=== PATIENT | female | born 1960 | race Caucasian/White ===

== ENCOUNTER 2016-12-17 20:32 | Emergency (ER) | payer MEDICAID ==
[~2016-12-17 20:32] MED LIST: AMARYL1 MG PO; DOXEPIN HCL10 MG PO; ENALAPRIL MALEA10 MG PO; METFORMIN HCL850 MG PO; ZOC10 PO; ZOL100 PO
[2016-12-17 21:55] VITALS: BP 135/81
== END 2016-12-17 21:55 | disposition home or self-care (01) ==
LOC: ED 20:32
DX: S93.401A Sprain of unspecified ligament of right ankle, initial encounter (principal); X50.1XXA Overexertion from prolonged static or awkward postures, initial encounter; Y93.66 Activity, soccer; Y92.89 Other specified places as the place of occurrence of the external cause; Y99.8 Other external cause status; Z79.84 Long term (current) use of oral hypoglycemic drugs; I10 Essential (primary) hypertension; E11.9 Type 2 diabetes mellitus without complications; F99 Mental disorder, not otherwise specified
CPT/HCPCS: J1885

== ENCOUNTER 2016-12-21 15:14 | Emergency (ER) | payer MEDICAID ==
[2016-12-21 17:40] VITALS: BP 152/84
== END 2016-12-21 17:40 | disposition home or self-care (01) ==
LOC: ED 15:14
DX: S93.401D Sprain of unspecified ligament of right ankle, subsequent encounter (principal); I10 Essential (primary) hypertension; E11.9 Type 2 diabetes mellitus without complications

== ENCOUNTER 2018-07-03 20:19 | Emergency (ER) | payer MEDICAID ==
[~2018-07-03] VITALS: Ht 157.5 cm; Wt 63.6 kg
[2018-07-03 21:03] VITALS: Ht 157.5 cm; Wt 63.6 kg
[2018-07-03 22:37] VITALS: BP 146/52
== END 2018-07-03 22:37 | disposition home or self-care (01) ==
LOC: ED 20:19
DX: M77.9 Enthesopathy, unspecified (principal); I10 Essential (primary) hypertension; E11.9 Type 2 diabetes mellitus without complications; F32.9 Major depressive disorder, single episode, unspecified
CPT/HCPCS: 82962; Q0092

== ENCOUNTER 2019-03-13 11:34 | Emergency (ER) | payer OTHER ==
[~2019-03-13] VITALS: Ht 157.5 cm; Wt 61.2 kg
[2019-03-13 11:54] VITALS: Ht 157.5 cm; Wt 61.2 kg
[2019-03-13 13:18] LABS: BASOPHIL % 0.7 % (0-2); PLATELET COUNT 211 x10^3mcL (130-400); RED CELL DISTRIBUTION WIDTH 12.7 % (11.5-14.5)
[2019-03-13 13:26] LABS: CARBON DIOXIDE 30.2 mmol/L (21-32); CHLORIDE SERUM 106 mmol/L (98-107); CREATININE SERUM 0.5 mg/dL (0.6-1.0); GFR1 > 60 mL/min; GLUCOSE SERUM 98 mg/dL (74-106); POTASSIUM SERUM 4.2 mmol/L (3.5-5.1); SODIUM SERUM 143 mmol/L (136-145)
[2019-03-13 13:31] LABS: ALBUMIN 3.8 g/dL (3.4-5.0); ALKALINE PHOSPHATASE 118 U/L (46-116); ALT/SGPT 65 U/L (14-59); AST/SGOT 32 U/L (15-37); BILIRUBIN TOTAL 1.36 mg/dL (0.20-1.00); TOTAL PROTEIN, SERUM 7.5 g/dL (6.4-8.2)
[2019-03-13 14:45] VITALS: BP 132/79
== END 2019-03-13 14:45 | disposition home or self-care (01) ==
LOC: ED 11:34
PROVIDERS: Emergency Medicine
DX: M79.661 Pain in right lower leg (principal); F41.9 Anxiety disorder, unspecified; I10 Essential (primary) hypertension; E11.9 Type 2 diabetes mellitus without complications; F32.9 Major depressive disorder, single episode, unspecified; R42 Dizziness and giddiness; R11.0 Nausea
CPT/HCPCS: J7030; Q0092

== ENCOUNTER 2019-08-15 11:16 | Emergency (ER) | payer OTHER ==
[~2019-08-15] VITALS: Ht 157.5 cm; Wt 59.9 kg
[2019-08-15 11:21] VITALS: BP 135/62; Ht 157.5 cm; Wt 59.9 kg
== END 2019-08-15 12:38 | disposition home or self-care (01) ==
LOC: ED 11:16
DX: J20.9 Acute bronchitis, unspecified (principal); I10 Essential (primary) hypertension; E11.9 Type 2 diabetes mellitus without complications
CPT/HCPCS: 82962

== ENCOUNTER 2019-08-19 08:44 | Emergency (ER) | payer OTHER ==
[~2019-08-19] VITALS: Ht 154.9 cm; Wt 61.7 kg
[2019-08-19 08:51] VITALS: Ht 154.9 cm; Wt 61.7 kg
[2019-08-19 09:44] VITALS: BP 145/53
== END 2019-08-19 09:44 | disposition home or self-care (01) ==
LOC: ED 08:44
DX: J40 Bronchitis, not specified as acute or chronic (principal); I10 Essential (primary) hypertension; E11.9 Type 2 diabetes mellitus without complications; Z98.890 Other specified postprocedural states; Z90.49 Acquired absence of other specified parts of digestive tract

== ENCOUNTER 2020-04-04 10:39 | Emergency (ER) | payer OTHER ==
[~2020-04-04] VITALS: Ht 157.5 cm; Wt 59.0 kg
[2020-04-04 10:45] VITALS: Ht 157.5 cm; Wt 59.0 kg
[2020-04-04 12:58] VITALS: BP 135/66
== END 2020-04-04 12:53 | disposition home or self-care (01) ==
LOC: ED 10:39
DX: R10.816 Epigastric abdominal tenderness (principal); R42 Dizziness and giddiness; I10 Essential (primary) hypertension; E11.9 Type 2 diabetes mellitus without complications; Z20.828 Contact with and (suspected) exposure to other viral communicable diseases; Z98.51 Tubal ligation status; Z90.49 Acquired absence of other specified parts of digestive tract
CPT/HCPCS: U0003-CS